=== PATIENT | female | born 1975 | race Two or more races ===

== ENCOUNTER 2023-12-18 21:24 | Emergency (ER) | payer OTHER ==
[~2023-12-18] VITALS: Ht 162.6 cm; Wt 77.1 kg
== END 2023-12-18 22:50 | disposition home or self-care (01) ==
LOC: ER 21:25
DX: M25.561 Pain in right knee (principal); M25.562 Pain in left knee; Z88.6 Allergy status to analgesic agent

== ENCOUNTER 2023-12-27 10:12 | Emergency (ER) | payer OTHER ==
[~2023-12-27] VITALS: Ht 162.6 cm; Wt 72.6 kg
[2023-12-27] MEDS ORDERED: ORPHENADRINE CITRATE 30 MG/ML AMPUL IM ONE (11:00)
== END 2023-12-27 13:38 | disposition home or self-care (01) ==
LOC: ER 10:12
DX: M25.561 Pain in right knee (principal); Z88.6 Allergy status to analgesic agent